=== PATIENT | male | born 1960 | race Caucasian/White ===

== ENCOUNTER 2024-04-26 21:29 | Emergency (ER) | payer BC, SELFPAY ==
[2024-04-26 21:32] VITALS: BP 162/89
--- NOTE | 2024-04-26 23:19 | ED.GENMED ---
History of Present Illness
General
Chief Complaint: Musculo-Skeletal Complaint
Source: patient
Time Seen by Provider: 04/26/24 22:49
History of Present Illness
History of Present Illness:
64-year-old male presents to the emergency room complaining of pain in his left lower leg. Patient noted pain yesterday while walking out of [employer]. Pain located in the heel and extending up into the ankle area as well as to the lower anterior
tibia. No specific injury. Patient did run on the treadmill with it the day before. He has a history of DVTs and was particular concerned about.
Phy Exam
Physical Exam
Physical Exam:
General: Awake, Alert, Oriented X3. No acute distress.
Vitals: unremarkable
Head: Atraumatic
Eyes: Pupils equal, EOMI
Neuro: Cranial nerves intact, muscle strength equal bilaterally, cerebellar exam normal
Skin: Warm, dry, no rash
Extremities: pulses equal b/l, no edema. Some tenderness palpation over the anterior lateral lower tibia. No visual abnormalities noted. No tenderness over the Achilles tendon.
Course
Orders/Labs/Results
Orders:
Orders
04/26/24 22:13
Legs, left US [US Periph Venous LOWER Ext LT] Urgent
Comment:
Reason For Exam: Rule out DVT
Vital Signs
Initial and Last Documented VS:
Initial Vital Signs
Temp Pulse Resp BP Pulse Ox
98.0 F 80 16 162/89 96
04/26/24 21:32 04/26/24 21:32 04/26/24 21:32 04/26/24 21:32 04/26/24 21:32
Last Documented Vital Signs
Temp Pulse Resp BP Pulse Ox
98.0 F 80 16 162/89 96
04/26/24 21:32 04/26/24 21:32 04/26/24 21:32 04/26/24 21:32 04/26/24 21:32
MDM/Problems Addressed
Differential Diagnosis Includes:
Tendinitis, DVT, cellulitis
MDM/Problems Addressed:
DVT study is negative. Suspect tendon inflammation from recent exercise. Stable for discharge home.
*Radiology
Radiology exam reviewed: radiology read reviewed
*Critical Care Note
Total Time (30-74mins, 75-104mins- exclusive of procedures): Not Applicable
ED Attending Note
-
Portions of this chart may have been created with voice recognition software.� Occasional wrong word or��sound alike� substitutions may have occurred due to the inherent limitations of voice recognition software.
Discharge Plan
Departure
Patient Disposition: Home (Routine Discharge)
Date of Disposition: 04/26/24
Time of Disposition: 23:21
Patient with high blood pressure during this ER visit?: Yes
Condition: Good
Discharge Problem:
Tendinitis
Instructions: Tendinopathy
Prescriptions:
No Action
albuterol sulfate 2.5 mg /3 mL (0.083 %) solution for nebulization
1.25 mg inhalation Q8H PRN (Reason: shortness of breath or wheezing) Qty: 90 0RF
prednisone 20 mg tablet
40 mg PO DAILY 4 Days Qty: 8 0RF
Referrals:
Nir Emery, DO [Family Provider] -
Interventions
Interventions:
*Risk Screen - Suicide Last Done: 04/26/24 21:32
*General Assessment Last Done: 04/26/24 22:14
*Neglect/Abuse Screening Last Done: 04/26/24 22:14
ED- Fall Risk Assessment Last Done: 04/26/24 22:14
ED-Musculoskeletal Assessment Last Done: 04/26/24 22:14
Discharge Date and Time
Print Language: STATELESS
== END 2024-04-26 23:35 | disposition home or self-care (01) ==
LOC: EMR 21:29
PROVIDERS: EMERGENCY PHYSICIAN Emergency Medicine; FAMILY PHYSICIAN Internal Medicine
DX: M77.9 Enthesopathy, unspecified (principal); R03.0 Elevated blood-pressure reading, without diagnosis of hypertension
CPT/HCPCS: 99284; 93971

== ENCOUNTER → 2025-08-11 12:58 | Outpatient (REF) | payer BC, SELFPAY ==
[2025-08-11 13:25] VITALS: BP 150/90; BP_SYST 81
[2025-08-11 14:56] VITALS: BP 147/87
== END ==
LOC: RADI 12:58
PROVIDERS: ATTENDING PHYSICIAN Orthopaedic Surgery; FAMILY PHYSICIAN Internal Medicine
DX: M19.012 Primary osteoarthritis, left shoulder (principal); M25.512 Pain in left shoulder
CPT/HCPCS: 20600; 77012

== ENCOUNTER 2025-10-01 19:51 | Emergency (ER) | payer BC, SELFPAY ==
[2025-10-01 20:00] VITALS: BP 95/64
--- NOTE | 2025-10-01 23:49 | ED.GENMED ---
History of Present Illness
General
Chief Complaint: Back Pain
Source: patient and spouse
Time Seen by Provider: 10/01/25 23:23
History of Present Illness
History of Present Illness:
This patient is a 65-year-old male presents emergency department complaints of back pain that started approximately 1:30 PM today. He describes bending down to hammer in a [place] and he turned while bending to hammer and developed pain in
his left lower back radiating to his hip and briefly to his groin and toes. He continues with pain in his left back without radiation. The pain is worse with certain movements, standing, and walking. When this happened, he walked inside and lay
down. He took Advil 250 mg and Tylenol 500 mg and applied ice. Of note, patient has a history of kidney disease and should avoid nonsteroidals. He denies any specific fall or trauma, fever, chills, incontinence, perianal anesthesia, numbness,
tingling, swelling, abdominal pain, urinary symptoms, or other complaints.
Past History
Past History
ED Past Medical History: Other (Glomerulonephritis, CKD, hypercholesterolemia, hypertension)
ED Past Surgical History: Other (ENT, retinal detachment surgery)
Social History
Tobacco: Non-smoker
Alcohol: None
Personal:
Living: with family
Phy Exam
Physical Exam
Physical Exam:
GENERAL: Alert , in no apparent distress, very pleasant
EYE: pupils equal and reactive
NECK: Supple, no significant adenopathy.
ENT: o/p clr, mmm.
CARDIAC: Regular rate and rhythm .
LUNGS: Clear breath sounds bilaterally, no acute respiratory distress, no wheezes/rales/rhonchi
ABDOMEN: Soft, without focal tenderness, no r/g, no cvat
NEUROLOGICAL: Alert and oriented, no focal neuro deficits, 2+ patellar reflexes bilaterally, negative SLR, motor 5 out of 5, sensory intact
SKIN: Warm and dry, skin intact.
MUSCULOSKELETAL: No edema, well perfused.
PSYCH: Normal and appropriate interaction.
BACK: nontender with midline palpation, no rash
Course
Orders/Labs/Results
Orders:
Orders
10/01/25 23:49
diazePAM [Valium Injection] 5 mg IM NOW STA
Vital Signs
Initial and Last Documented VS:
Initial Vital Signs
Temp Pulse Resp BP Pulse Ox
98 F 89 16 95/64 96
10/01/25 20:00 10/01/25 20:00 10/01/25 20:00 10/01/25 20:00 10/01/25 20:00
Last Documented Vital Signs
Temp Pulse Resp BP Pulse Ox
98 F 71 18 132/70 97
10/01/25 20:00 10/02/25 00:15 10/02/25 00:15 10/02/25 00:15 10/02/25 00:15
*Pulse Oximetry
SaO2: 96
Oxygen Mode of Delivery: Room air
Patient hypoxic: no
*Critical Care Note
Total Time (30-74mins, 75-104mins- exclusive of procedures): Not Applicable
Update Note
Update Note:
Patient presents to the Emergency Department with ____low back pain
Number and Complexity of Problems Addressed at the Encounter
� Chronic conditions affecting care:
� Acute Exacerbation and/or Progression of Chronic Illness:
� Differential Diagnosis includes: But not limited to muscle spasm, radiculopathy, cauda equina, kidney stone, shingles, etc. etc.
Amount and/or Complexity of Data to be Reviewed and Analyzed
� I performed an independent evaluation of and my interpretation is:
EKG:
CT:
Xrays:
Laboratory Studies:
Other:
� Review of other/old records reveals:
� Clinical information was obtained by an independent historian: who is bedside
� Prescriptions/Medications Considered but not given:
� Further testing considered but not performed:
Risk of Complications and/or Morbidity or Mortality of Patient Management
� Social determinants of health affecting care:
� Discussion with other providers (PCP, Hospitalists, Consultants, etc):
� Escalation of care including admission/observation vs risk of discharge considered: I strongly reinforced to patient importance of not taking any further not steroidal anti-inflammatory medications. He would like to avoid
imaging such as x-ray tonight which is reasonable given no history of trauma, no acute neurological findings or complaints, etc. Does not report signs or symptoms to suggest cauda equina or infectious process. Strongly suspect radiculopathy and/or
muscular spasm. Discussed with patient portance of follow-up and reasons return to the ER.
ED Attending Note
-
Portions of this chart may have been created with voice recognition software.� Occasional wrong word or��sound alike� substitutions may have occurred due to the inherent limitations of voice recognition software.
Discharge Plan
Departure
Patient Disposition: Home (Routine Discharge)
Date of Disposition: 10/01/25
Time of Disposition: 23:50
Patient with high blood pressure during this ER visit?: No
Condition: Good
Discharge Problem:
Low back pain
Instructions: Low Back Pain (DC)
Prescriptions:
New
cyclobenzaprine 10 mg tablet
10 mg PO TID PRN (Reason: SPASM/PAIN) Qty: 17 0RF
No Action
albuterol sulfate 2.5 mg /3 mL (0.083 %) solution for nebulization
1.25 mg inhalation Q8H PRN (Reason: shortness of breath or wheezing) Qty: 90 0RF
prednisone 20 mg tablet
40 mg PO DAILY 4 Days Qty: 8 0RF
enalapril maleate 10 mg Tablet
10 mg PO BID
coenzyme Q10 [Co Q-10] 10 mg Capsule
30 mg PO DAILY
omeprazole 40 mg Capsule,Delayed Release(Dr/Ec)
40 mg PO DAILY
potassium chloride [Klor-Con] 20 mEq Packet
20 meq PO BID
pravastatin 80 mg Tablet
80 mg PO HS
vitamin B complex Capsule
1 cap PO DAILY
Vitamin C 25 mg Tablet
25 mg PO DAILY
ezetimibe 10 mg Tablet
10 mg PO DAILY
cetirizine 10 mg Capsule
10 mg PO DAILY
azelastine-fluticasone 137-50 mcg/spray [place],Non-Aerosol
1 spray INTRANASAL BID
Align Dualbiotic 500 million cell-1.25 gram Tablet,Chewable
1 tab PO DAILY
Vitamin D3 Complete
50,000 mg PO MONTHLY
Activity Restrictions/Additional Instructions:
PLEASE CONTACT YOUR DOCTOR THIS WEEK FOR EARLY FOLLOW-UP. IF YOU DEVELOP INCREASING NEW OR PERSISTENT PAIN, RASH, SWELLING, INCONTINENCE, DIFFICULTY URINATING OR HAVING A BOWEL MOVEMENT, FEVER, CHILLS, ABDOMINAL PAIN, SWELLING, WEAKNESS, OR OTHER
WORRISOME SIGNS, PLEASE RETURN TO THE ER IMMEDIATELY EXCLAMATION
Interventions
Interventions:
*General Assessment Last Done: 10/02/25 00:14
*Neglect/Abuse Screening Last Done: 10/01/25 20:02
*ED COVID-19 Vaccine History Last Done: 10/02/25 00:14
*ED Influenza Vaccine History Last Done: 10/02/25 00:14
[facility] Fall Risk Assessment Tool Last Done: 10/02/25 00:15
*Risk Screen - Suicide (C-SSRS) Last Done: 10/01/25 20:02
*Nursing Disposition Last Done: 10/02/25 00:22
ED-Musculoskeletal Assessment Last Done: 10/02/25 00:22
Discharge Date and Time
Discharge Date/Time: 10/02/25 00:34
Print Language: INDONESIAN
[2025-10-02] MEDS: VALIUM INJECTION 5 MG IM (00:11)
[2025-10-02 00:15] VITALS: BP 132/70
== END 2025-10-02 00:34 | disposition home or self-care (01) ==
LOC: EMR 19:51
PROVIDERS: EMERGENCY PHYSICIAN Emergency Medicine; FAMILY PHYSICIAN Internal Medicine
DX: M54.50 Low back pain, unspecified (principal); E78.00 Pure hypercholesterolemia, unspecified; I12.9 Hypertensive chronic kidney disease with stage 1 through stage 4 chronic kidney disease, or unspecified chronic kidney disease; N18.9 Chronic kidney disease, unspecified
CPT/HCPCS: 96372; 99284